=== PATIENT | male | born 1945 | race Caucasian/White ===

== ENCOUNTER 2017-12-12 23:33 | Observation (INO) | payer OTHER ==
[~2017-12-12] VITALS: Ht 175.3 cm; Wt 77.0 kg
[2017-12-13] VITALS (10 sets, daily range): BP systolic 113–137; BP diastolic 61–78; PULSE 65–80; TEMP 36.5–37.1; O2SAT 92–98; Ht 175.3 cm; Wt 77.0 kg
[2017-12-13] MEDS ORDERED: MoRPHine SULFATE 10 MG/ML CARP/VIAL IV STA ×2 (00:01→02:27)
[2017-12-13] MEDS ORDERED: ONDANSETRON INJ 2 MG/ML 2 ML VIAL IV STA (00:01)
[2017-12-13] MEDS ORDERED: SODIUM CHLORIDE 0.9% 1000ML 1,000 ML IV STA (00:01)
--- NOTE | 2017-12-13 00:06 | EMERGENCY ROOM VISIT NOTE ---
History Report prepared by Jhon: Joy Mcghee Under the Supervision of: Dr. Js Julian M.D. First contact with patient: 23:48 Chief Complaint: ABDOMINAL PAIN Stated Complaint: SUDDEN ONSET SEVERE STOMACH PAIN > 31/2HRS,VOMITIN History of Present Illness The patient is a 72 year old male who presents to the Emergency Room with complaints of persistent abdominal pain that started a few hours ago. The patient rates his pain a 7/10 in severity. He notes the pain is in the center of his stomach. He describes the pain as "sharp". He reports the pain started after he ate dinner. He states he thought he ate too much so he made himself vomit but it did not reduce his pain. He notes he ate soup and crackers but had to vomit soon after. He reports he took Advil to help his pain. He notes his last bowel movement was this morning. He denies any history of heart problems, aortic aneurysms, hernias, yellowing of eyes, leg swelling, rashes, or easy bruising. The patient denies any chest pain or urine symptoms. The patient has not had any recent injuries. He has a history of Type II Diabetes and was diagnosed a couple of weeks ago. He notes his blood sugar has been slightly high the past 2 days. Source of History: patient Onset: a few hours ago Position: abdomen Symptom Intensity: 7/10 Quality: sharp Timing: other (persistent) Associated Symptoms: No chest pain, No urinary symptoms Review of Systems See HPI for pertinent positives & negatives. A total of 10 systems reviewed and were otherwise negative. Past Medical & Surgical Medical Problems: (1) Symptomatic cholelithiasis No past medical or surgical history. Family History Patient reports no known family medical history. Social History Smoking Status: Never Smoker Marital Status: Housing Status: lives with significant other Allergies Coded Allergies: Metoprolol (Verified Allergy, Severe, Seizures, 12/13/17) Physical Exam Vital Signs Date Time Temp Pulse Resp B/P (MAP) Pulse Ox O2 Delivery O2 Flow Rate FiO2 12/13/17 03:49 75 16 129/74 95 Room Air 12/13/17 02:35 64 18 136/82 95 Room Air 12/13/17 01:17 89 18 148/80 97 Room Air 12/12/17 23:45 36.4 62 20 174/82 98 Room Air Physical Exam GENERAL: Patient is very uncomfortable appearing and in moderate distress. HEENT: No acute trauma, normocephalic atraumatic, mucous membranes moist, no nasal congestion, no scleral icterus. NECK: No stridor, no adenopathy, no meningismus, trachea is midline. LUNGS: No dyspnea. Clear to auscultation and equal bilaterally. No wheeze, no rhonchi. HEART: Regular rate and rhythm. No murmurs, rubs, gallops appreciated. ABDOMEN: Vague epigastric tenderness to palpation. Hyperactive bowel sounds. BACK: No midline tenderness, no CVA tenderness EXTREMITIES: Normal motion all extremities, no cyanosis, no edema. NEUROLOGIC: Alert and oriented, no acute motor or sensory deficits, no focal weakness, cranial nerves grossly intact. SKIN: No rash, no jaundice, no diaphoresis. Medical Decision & Procedures ER Provider Diagnostic Interpretation: Radiology results and stated below per my review and radiologist interpretation: CT ABDOMEN & PELVIS With Contrast: Normal appendix. No bowel wall thickening or bowel obstruction, Small hiatal hernia. Small water density cyst in the mid left kidney is most likely benign. Linear high density in both renal pelvises probably represents early excretion of contrast. No hydronephrosis or nephrolithiasis. Small bilateral fat-containing inguinal hernias. Laboratory Results 12/13/17 00:21 Red Blood Count 4.45, Mean Corpuscular Volume 87.4, Mean Corpuscular Hemoglobin 30.3, Mean Corpuscular Hemoglobin Concent 34.7, Mean Platelet Volume 9.3, Neutrophils (%) (Auto) 88.1, Lymphocytes (%) (Auto) 8.7, Monocytes (%) (Auto) 2.2, Eosinophils (%) (Auto) 0.6, Basophils (%) (Auto) 0.2, Neutrophils # (Auto) 10.15, Lymphocytes # (Auto) 1.00, Monocytes # (Auto) 0.25, Eosinophils # (Auto) 0.07, Basophils # (Auto) 0.02 12/13/17 00:21 Test 12/13/17 00:21 12/13/17 00:24 White Blood Count 11.51 K/uL (4.8-10.8) Red Blood Count 4.45 M/uL (4.7-6.1) Hemoglobin 13.5 g/dL (14.0-18.0) Hematocrit 38.9 % (42-52) Mean Corpuscular Volume 87.4 fL (80-100) Mean Corpuscular Hemoglobin 30.3 pg (25-34) Mean Corpuscular Hemoglobin Concent 34.7 g/dl (32-36) Platelet Count 222 K/uL (130-400) Mean Platelet Volume 9.3 fL (7.4-10.4) Neutrophils (%) (Auto) 88.1 % Lymphocytes (%) (Auto) 8.7 % Monocytes (%) (Auto) 2.2 % Eosinophils (%) (Auto) 0.6 % Basophils (%) (Auto) 0.2 % Neutrophils # (Auto) 10.15 K/uL (1.4-6.5) Lymphocytes # (Auto) 1.00 K/uL (1.2-3.4) Monocytes # (Auto) 0.25 K/uL (0.11-0.59) Eosinophils # (Auto) 0.07 K/uL (0-0.5) Basophils # (Auto) 0.02 K/uL (0-0.2) RDW Standard Deviation 42.4 fL (36.4-46.3) RDW Coefficient of Variation 13.2 % (11.5-14.5) Immature Granulocyte % (Auto) 0.2 % Immature Granulocyte # (Auto) 0.02 K/uL (0.00-0.02) Anion Gap 8.0 mmol/L (3-11) Est Creatinine Clear Calc Drug Dose 52.1 ml/min Estimated GFR () 62.9 Estimated GFR (Non- 54.3 BUN/Creatinine Ratio 16.6 (10-20) Calcium Level 9.6 mg/dl (8.5-10.1) Total Bilirubin 0.4 mg/dl (0.2-1) Direct Bilirubin 0.1 mg/dl (0-0.2) Aspartate Amino Transf (AST/SGOT) 14 U/L (15-37) Alanine Aminotransferase (ALT/SGPT) 32 U/L (12-78) Alkaline Phosphatase 52 U/L (45-117) Troponin I < 0.015 ng/ml (0-0.045) Total Protein 8.0 gm/dl (6.4-8.2) Albumin 4.0 gm/dl (3.4-5.0) Lipase 147 U/L (73-393) Urine Color YELLOW Urine Appearance CLEAR (CLEAR) Urine pH 5.0 (4.5-7.5) Urine Specific [place] 1.030 (1.000-1.030) Urine Protein 1+ (NEG) Urine Glucose (UA) NEG (NEG) Urine Ketones TRACE (NEG) Urine Occult Blood NEG (NEG) Urine Nitrite NEG (NEG) Urine Bilirubin NEG (NEG) Urine Urobilinogen NEG (NEG) Urine Leukocyte Esterase NEG (NEG) Urine WBC (Auto) 1-5 /hpf (0-5) Urine RBC (Auto) 0-4 /hpf (0-4) Urine Hyaline Casts (Auto) 1-5 /lpf (0-5) Urine Epithelial Cells (Auto) 5-10 /lpf (0-5) Urine Bacteria (Auto) NEG (NEG) Urine Crystals CALCIUM OXALATE (NONE Urine Mucus PRESENT (NONE PRSENT) Laboratory results as reviewed by me. Medications Administered Medications (Trade) Dose Ordered Sig/Bakari Route Start Time Stop Time Status Last Admin Dose Admin Sodium Chloride 1,000 ml @ 999 mls/hr Q1H1M STAT IV 12/13/17 00:01 12/13/17 01:01 DC 12/13/17 00:30 999 MLS/HR Morphine Sulfate (MoRPHine SULFATE INJ) 6 mg NOW STAT IV 12/13/17 00:01 12/13/17 00:03 DC 12/13/17 00:31 6 MG Ondansetron HCl (Zofran Inj) 4 mg NOW STAT IV 12/13/17 00:01 12/13/17 00:03 DC 12/13/17 00:31 4 MG Miscellaneous Information (Patient'S Allergy Info Needs Entered) 1 ea ONE STAT N/A 12/13/17 00:17 12/13/17 00:18 DC 12/13/17 00:17 1 EA Morphine Sulfate (MoRPHine SULFATE INJ) 6 mg NOW STAT IV 12/13/17 02:27 12/13/17 02:28 DC 12/13/17 02:35 6 MG Cefoxitin Sodium (Mefoxin 2000mg/ 60 ml D5W) 2,000 mg NOW STAT IV 12/13/17 03:13 12/13/17 03:14 DC 12/13/17 03:46 2,000 MG ECG Per My Interpretation Indication: abdominal pain Rate (beats per minute): 62 Rhythm: normal sinus Findings: no acute ischemic change, no ectopy, other (normal QTC, normal [place] interval) ED Course 234: The patient was evaluated in room C3. A complete history and physical exam was performed.\\\\ 0120: I reevaluated the patient and he is feeling much better. He still has discomfort but no severe pain. Awaiting CT scan. 021: I reevaluated the patient and he states the pain is coming back. I discussed limitations of ER evaluation but given continued pain we will proceed with US of gallbladder. 0315: General surgery was contacted by me. 032: I spoke with JAZMYNE Tucker from general surgery. He will evaluate the patient for further treatment. Medical Decision Differential: Cholecystitis, Gallbladder disfunction, Hepatic Disfunction, Gastritis/PUD, Pancreatitis, ACS, Aortic Pathology, amongst other pathologies entertained. 72 yr old male arrives with complaint of epigastric pain rapid onset since eating dinner. Associated nausea. TTP over epigastric region on arrival. With no history of abdominal issues and this sudden onset and severity felt CT imaging appropriate. Labs unremarkable. CT unremarkable though on repeat evaluation he is having increased pain and TTP over the RUQ. Thus felt US reasonable which was consistent with early cholecystitis and stone in gb neck. Given 2 g Mefoxin and surgery consulted who admitted him for further management. Patient stable, not septic and without significant discomfort at time of admission. Medication Reconcilliation Current Medication List: was personally reviewed by me Blood Pressure Screening Patient's blood pressure: Elevated blood pressure Blood pressure disposition: Elevated BP felt to be situational Consults Time Called: [phone] Consulting Physician: JAZMYNE Tucker general surgery Returned Call: [phone] I spoke with JAZMYNE Tucker from general surgery. He will evaluate the patient for further treatment. Impression Primary Impression: Symptomatic cholelithiasis Additional Impression: Acute calculous cholecystitis Scribe Attestation The scribe's documentation has been prepared under my direction and personally reviewed by me in its entirety. I confirm that the note above accurately reflects all work, treatment, procedures, and medical decision making performed by me. Departure Information Referrals Taylor Dumont DO (PCP) Patient Instructions [facility] Problem Qualifiers
[2017-12-13] MEDS ORDERED: OPTIRAY 320 IV PRN (00:15)
[2017-12-13] MEDS ORDERED: PATIENT'S ALLERGY INFO NEEDS ENTERED STA (00:17)
[2017-12-13 00:38] LABS: BASO % 0.2 %; BASO ABS # 0.02 K/uL (0-0.2); EOS % 0.6 %; EOS ABS # 0.07 K/uL (0-0.5); HEMATOCRIT 38.9 % (42-52); HEMOGLOBIN 13.5 g/dL (14.0-18.0); IG# 0.02 K/uL (0.00-0.02); LYMPH % 8.7 %; MEAN CELL VOLUME 87.4 fL (80-100); MEAN CORPUSCULAR HEMOGLOBIN 30.3 pg (25-34); MEAN CORPUSCULAR HGB CONC 34.7 g/dl (32-36); MEAN PLATELET VOLUME 9.3 fL (7.4-10.4); MONO % 2.2 %; MONO ABS # 0.25 K/uL (0.11-0.59); NEUT % 88.1 %; NEUT ABS # 10.15 K/uL (1.4-6.5); PLATELET COUNT 222 K/uL (130-400); RED CELL DISTRIBUTION WIDTH CV 13.2 % (11.5-14.5); RED CELL DISTRIBUTION WIDTH SD 42.4 fL (36.4-46.3); WHITE BLOOD COUNT 11.51 K/uL (4.8-10.8)
[2017-12-13 01:00] LABS: ALT/SGPT 32 U/L (12-78); AST/SGOT 14 U/L (15-37); BLOOD UREA NITROGEN 22 mg/dl (7-18); CALCIUM 9.6 mg/dl (8.5-10.1); CARBON DIOXIDE 26 mmol/L (21-32); CREATININE 1.32 mg/dl (0.60-1.40); GLUCOSE 212 mg/dl (70-99); LIPASE 147 U/L (73-393); POTASSIUM 4.4 mmol/L (3.5-5.1); SODIUM 138 mmol/L (136-145)
[2017-12-13 01:05] LABS: ALKALINE PHOSPHATASE 52 U/L (45-117)
[2017-12-13] MEDS ORDERED: CEFOXITIN 2000MG/60 ML D5W IV STA (03:13)
--- NOTE | 2017-12-13 04:55 | Surgery Consultation ---
Consultation Date of Consultation: Dec 13, 2017. Attending Physician: Reason for Consultation: cholelithiasis History of Present Illness Patient is a 72M who presents to the ED due to epigastric abdominal pain which started at approximately 1900. Patient reports the pain and dull and notes it began soon after he had pizza and strawberry shortcake for dinner around 1800. He thought he ate too much and was feeling nauseated, so he made himself vomit which did not improve his symptoms. Denies hematemesis. Denies any other episodes of vomiting. Denies fever/chills/recent illness. He has been moving his bowels and urinating without issue. Last BM this AM. Denies FHx of gallbladder disease. Denies regular use of any blood thinning or anticoagulant medications. He did try taking some Ibuprofen tonight without relief. PSHx significant for wisdom teeth. PMHx significant for DM. WBC 11.51, LFTs WNL. RUQ U/S shows cholelithiasis with a non-mobile stone in the GB neck, gallbladder wall top normal in thickness, mild pericholecystic fluid, CBD measures 0.6cm. Patient did receive 2g mefoxin in the ED at 0313. Family History Patient reports no known family medical history. Social History Smoking Status: Never Smoker Marital Status: Housing Status: lives with significant other Allergies Coded Allergies: Metoprolol (Verified Allergy, Severe, Seizures, 12/13/17) Current Inpatient Medications Current Inpatient Medications Medications (Trade) Dose Ordered Sig/Bakari Route Start Time Stop Time Status Last Admin Dose Admin Ioversol (Optiray 320) 125 ml UD PRN IV 12/13/17 00:15 12/17/17 00:14 Review of Systems Constitutional: No fever, No chills Respiratory: No shortness of breath Cardiovascular: No chest pain Abdomen: + pain (RUQ), + nausea, + vomiting (1 episode), No diarrhea, No constipation Genitourinary - Male: No dysuria Physical Exam Date Time Temp Pulse Resp B/P (MAP) Pulse Ox O2 Delivery O2 Flow Rate FiO2 12/13/17 03:49 75 16 129/74 95 Room Air 12/13/17 02:35 64 18 136/82 95 Room Air 12/13/17 01:17 89 18 148/80 97 Room Air 12/12/17 23:45 36.4 62 20 174/82 98 Room Air General Appearance: WD/WN, no apparent distress Head: normocephalic, atraumatic ENT: hearing grossly normal Neck: trachea midline Respiratory/Chest: lungs clear, no respiratory distress, no accessory muscle use Cardiovascular: regular rate, rhythm, no gallop, no murmur Abdomen/GI: soft, no organomegaly, no pulsatile mass, + tenderness (RUQ TTP), + distended (mild) Neurologic/Psych: alert, normal mood/affect, oriented x 3 Skin: normal color, warm/dry Laboratory Results Last 24 Hours Test 12/13/17 00:21 12/13/17 00:24 White Blood Count 11.51 K/uL Red Blood Count 4.45 M/uL Hemoglobin 13.5 g/dL Hematocrit 38.9 % Mean Corpuscular Volume 87.4 fL Mean Corpuscular Hemoglobin 30.3 pg Mean Corpuscular Hemoglobin Concent 34.7 g/dl Platelet Count 222 K/uL Mean Platelet Volume 9.3 fL Neutrophils (%) (Auto) 88.1 % Lymphocytes (%) (Auto) 8.7 % Monocytes (%) (Auto) 2.2 % Eosinophils (%) (Auto) 0.6 % Basophils (%) (Auto) 0.2 % Neutrophils # (Auto) 10.15 K/uL Lymphocytes # (Auto) 1.00 K/uL Monocytes # (Auto) 0.25 K/uL Eosinophils # (Auto) 0.07 K/uL Basophils # (Auto) 0.02 K/uL RDW Standard Deviation 42.4 fL RDW Coefficient of Variation 13.2 % Immature Granulocyte % (Auto) 0.2 % Immature Granulocyte # (Auto) 0.02 K/uL Sodium Level 138 mmol/L Potassium Level 4.4 mmol/L Chloride Level 104 mmol/L Carbon Dioxide Level 26 mmol/L Anion Gap 8.0 mmol/L Blood Urea Nitrogen 22 mg/dl Creatinine 1.32 mg/dl Est Creatinine Clear Calc Drug Dose 52.1 ml/min Estimated GFR () 62.9 Estimated GFR (Non- 54.3 BUN/Creatinine Ratio 16.6 Random Glucose 212 mg/dl Calcium Level 9.6 mg/dl Total Bilirubin 0.4 mg/dl Direct Bilirubin 0.1 mg/dl Aspartate Amino Transf (AST/SGOT) 14 U/L Alanine Aminotransferase (ALT/SGPT) 32 U/L Alkaline Phosphatase 52 U/L Troponin I < 0.015 ng/ml Total Protein 8.0 gm/dl Albumin 4.0 gm/dl Lipase 147 U/L Urine Color YELLOW Urine Appearance CLEAR Urine pH 5.0 Urine Specific [place] 1.030 Urine Protein 1+ Urine Glucose (UA) NEG Urine Ketones TRACE Urine Occult Blood NEG Urine Nitrite NEG Urine Bilirubin NEG Urine Urobilinogen NEG Urine Leukocyte Esterase NEG Urine WBC (Auto) 1-5 /hpf Urine RBC (Auto) 0-4 /hpf Urine Hyaline Casts (Auto) 1-5 /lpf Urine Epithelial Cells (Auto) 5-10 /lpf Urine Bacteria (Auto) NEG Urine Crystals CALCIUM OXALATE Urine Mucus PRESENT Assessment & Plan symptomatic cholelithiasis, stone in gallbladder neck Plan for laparoscopic cholecystectomy with possible intraoperative cholangiogram, possible open in the OR today with Dr. Morris. Risks, benefits, alternatives to the procedure were discussed - all questions answered. Admit med/surg (obs), NPO, IV Mefoxin 2g Q6H, IV Fluids, pain medications PRN , zofran PRN, SCDs OR notified. Will discuss findings with Dr. Morris in the AM.
[2017-12-13] MEDS ORDERED: HYDROmorphone INJ 1 MG/ML SYR IV PRN ×2 (05:00→08:30)
[2017-12-13] MEDS ORDERED: HYDROmorphone INJ 0.5 MG/0.5 ML SYR IV PRN (05:00)
[2017-12-13] MEDS ORDERED: ONDANSETRON INJ 6 MG in DEXTROSE 5% 50ML 50 ML IV PRN (05:00)
[2017-12-13] MEDS ORDERED: METF-384 PO ×2 (05:31)
[2017-12-13] MEDS ORDERED: ATOR-24 PO ×2 (05:31)
[2017-12-13] MEDS ORDERED: LISI-729 PO ×2 (05:32)
[2017-12-13] MEDS ORDERED: LEVO88TA3 PO ×2 (05:33)
[2017-12-13] MEDS ORDERED: GLIP-199 PO ×2 (05:34)
[2017-12-13] MEDS ORDERED: ASPI81TA28 PO ×2 (05:35)
[2017-12-13] MEDS: ACETAMINOPHEN IV 1,000 MG in EMPTY BAG 0 ML IV SCH ×3 (06:10→21:54)
[2017-12-13] MEDS: SODIUM CHLORIDE 0.9% 1000ML 1,000 ML IV SCH ×2 (06:11→17:08)
[2017-12-13] MEDS ORDERED: IV FLUIDS COMPLETED PRN (06:15)
--- NOTE | 2017-12-13 07:20 | DIAGNOSTIC IMAGING REPORT ---
ULTRASOUND RIGHT UPPER QUADRANT ABDOMEN CLINICAL HISTORY: Right upper quadrant abdominal pain. COMPARISON STUDY: Abdominal CT dated 12/13/2017. TECHNIQUE: Real-time, grayscale, and color flow sonography of the right upper quadrant of the abdomen was performed. Images are reviewed in the transverse and longitudinal planes. FINDINGS: Liver: The liver is normal in size and echotexture. There is no intrahepatic biliary ductal dilatation. The main portal vein is patent. Gallbladder: There is a calcified shadowing gallstone in the region of the gallbladder neck which measures up to 1.7 cm. The gallbladder is mildly distended. The gallbladder wall is top normal in thickness measuring up to 3 mm and appears slightly edematous. Trace pericholecystic fluid is identified. A sonographic Stinson's sign is reportedly absent. The common bile duct measures up to 0.6 cm in diameter. Pancreas: Not well visualized due to overlying bowel gas. Right kidney: Survey images of the right kidney demonstrate normal size and echotexture. There is no hydronephrosis. Ascites: None. IMPRESSION: 1. Cholelithiasis with findings concerning for acute cholecystitis. Surgical consultation is advised. Consider nuclear hepatobiliary scan for confirmation if clinically warranted. 2. There is no intra or extrahepatic biliary ductal dilatation. 3. The pancreas was not well visualized due to overlying bowel gas. Electronically signed by: Rene Thompson M.D. 12/13/2017 7:18 AM Dictated Date/Time: 12/13/2017 7:16 AM
--- NOTE | 2017-12-13 08:25 | DIAGNOSTIC IMAGING REPORT ---
CT SCAN OF THE ABDOMEN AND PELVIS WITH IV CONTRAST CLINICAL HISTORY: Epigastric abdominal pain. COMPARISON STUDY: No priors. TECHNIQUE: Following the IV administration of 120 cc of Optiray 320, CT scan of the abdomen and pelvis is performed from the lung bases to the proximal femora. Images are reviewed in the axial, sagittal, and coronal planes. IV contrast was administered without complication. A dose lowering technique was utilized adhering to the principles of ALARA. CT DOSE: 373.27 mGy.cm FINDINGS: Lung bases: The heart is normal in size and without pericardial effusion. The lung bases are clear noting dependent atelectasis. There is a tiny hiatal hernia. Liver: The contrast-enhanced liver is normal in size, contour, and attenuation. There is no intrahepatic biliary ductal dilatation. The hepatic veins and portal veins are patent. Gallbladder: Unremarkable. Spleen: Normal in size and attenuation. Pancreas: Unremarkable. Adrenal glands: Unremarkable. Kidneys: The contrast enhanced kidneys demonstrate cortical atrophy and are without hydronephrosis. The kidneys enhance symmetrically. Scattered subcentimeter cortical hypodensities likely represent cysts but are too small for definitive characterization. Abdominal vasculature: The abdominal aorta is normal in course and caliber noting moderate atherosclerotic calcification. Bowel: Fecal retention is noted in the right colon. No bowel obstruction is seen. The appendix is well-visualized and normal. Peritoneum: There is no intraperitoneal free air or abdominal ascites. Lymphadenopathy: None. Pelvic viscera: The prostate gland appears mildly enlarged. The bladder is normal as visualized. A small fat-containing right inguinal hernia is noted. Skeletal structures: The skeletal structures are osteopenic. There is mild to moderate lumbosacral spondylosis. No lytic or blastic lesions are seen. IMPRESSION: No acute infectious or inflammatory findings are identified in the abdomen or pelvis. Electronically signed by: Rene Thompson M.D. 12/13/2017 8:24 AM Dictated Date/Time: 12/13/2017 8:17 AM
[2017-12-13] MEDS ORDERED: EpHEDrine SULFATE INJ 50 MG/ML AMP IV PRN (08:30)
[2017-12-13] MEDS ORDERED: FENTANYL CITRATE INJ 50 MCG/1 ML 2 ML VIAL IV PRN (08:30)
[2017-12-13] MEDS ORDERED: LABETALOL HCL IV 5 MG/ML 20ML IV PRN (08:30)
[2017-12-13] MEDS ORDERED: MEPERIDINE HCL 25 MG/ML CARP IV PRN (08:30)
[2017-12-13] MEDS ORDERED: ONDANSETRON INJ 2 MG/ML 2 ML VIAL IV PRN ×2 (08:30→16:00)
[2017-12-13] MEDS ORDERED: ATROPINE SULFATE 0.1 MG/ML 5ML SYR IV PRN (08:30)
[2017-12-13] MEDS ORDERED: CEFOXITIN IV 2,000 MG in DEXTROSE 5% 50ML 50 ML IV SCH (10:00)
[2017-12-13] MEDS ORDERED: MoRPHine SULFATE PF 1 MG/ML 10 ML AMP/VIAL ONE (14:24)
[2017-12-13] MEDS ORDERED: FENTANYL CITRATE INJ 50 MCG/1 ML 2 ML VIAL ONE ×2 (14:24→15:14)
[2017-12-13] MEDS ORDERED: MIDAZOLAM HCL 1 MG/ML 2ML VIAL ONE (14:24)
[2017-12-13] MEDS ORDERED: ONDANSETRON INJ 2 MG/ML 2 ML VIAL ONE (15:14)
[2017-12-13] MEDS ORDERED: PROPOFOL IV EMULSION 10 MG/ML 20 ML VIAL IV ONE (15:14)
[2017-12-13] MEDS ORDERED: GLYCOPYRROLATE INJ 0.2 MG/ML VIAL ONE (15:14)
[2017-12-13] MEDS ORDERED: ROCURONIUM BROMIDE 10 MG/ML 5 ML VIAL IV ONE (15:14)
[2017-12-13] MEDS ORDERED: KETOROLAC TROMETHAMINE 30 MG/ML VIAL ONE (15:14)
[2017-12-13] MEDS ORDERED: NEOSTIGMINE METHYLSULFATE 5 MG/5 ML SYR ONE (15:14)
[2017-12-13] MEDS ORDERED: CEFOXITIN SOD 1 GM VIAL ONE (15:15)
[2017-12-13] MEDS ORDERED: BUPIVACAINE 0.5 % 5 MG/1 ML MPF 30ML VIAL INJ ONE (15:37)
--- NOTE | 2017-12-13 15:41 | [facility] Post Operative Brief Note ---
Immediate Operative Summary Operative Date Dec 13, 2017. Pre-Operative Diagnosis Symptomatic cholelithiasis, stone in gallbladder neck Post-Operative Diagnosis Symptomatic cholelithiasis, acute cholecystitis Procedure(s) Performed Laparoscopic Cholecystectomy Surgeon Dr. Morris Research Anthropologist Surgeon(s) Yolis Rico PA-C Estimated Blood Loss 5 ml Findings Consistent with Post-Op Diagnosis Window of safety obtained Specimens Permanent Specimens: A:Gallbladder and contents Drains None Anesthesia Type General Complication(s) none Disposition Accompanied Pt To Recover: no Disposition: Recovery Room / PACU
--- NOTE | 2017-12-13 15:45 | [facility] Operative Report ---
Operative Report Operative Date Dec 13, 2017. Pre-Operative Diagnosis Symptomatic cholelithiasis, stone in gallbladder neck Post-Operative Diagnosis Acute calculus cholecystitis Procedure(s) Performed Laparoscopic cholecystectomy Surgeon Dr. Morris Mounter Sousaphones Surgeon(s) Yolis Rico PA-C Estimated Blood Loss 5 ml Findings Moderate cholecystitis, window of safety obtained, cystic duct and artery doubly clipped and divided, good hemostasis Specimens Permanent Specimens: A:Gallbladder and contents Drains None Anesthesia General Complication(s) None Disposition Recovery Room / PACU Indications 72-year-old male admitted overnight with acute calculus cholecystitis, plan for laparoscopic cholecystectomy with possible cholangiogram. The risks of the procedure were discussed, all questions were answered, and the patient agreed to proceed with surgery as planned. Description of Procedure The patient was properly identified, consented, and taken to the operating room where he was placed in the supine position. General endotracheal anesthesia was induced. SCDs and a safety belt were placed. Preoperative antibiotics were administered. The patient's abdomen was prepped and draped in the standard sterile fashion. A surgical timeout was performed and all parties were in agreement that this was the correct patient and procedure to be performed and we continued as planned. An incision was made superior and to the left of the umbilicus overlying the rectus muscle and the Veress needle was inserted. Saline drop test confirmed entry into the peritoneum. The abdomen was insufflated with carbon dioxide which the patient tolerated without incident. The abdomen was then entered using the Optiview technique and a 5 mm trocar. The laparoscope was inserted and no damage from initial trocar or Veress needle placement was noted, no gross abnormalities were noted within the 4 quadrants of the abdomen. An 11 mm port was placed in the subxiphoid position and two 5 mm ports were then placed in the right subcostal position. The patient was placed in reverse Trendelenburg position and rotated towards the left. The gallbladder is moderately inflamed and tense and a needle was used to aspirate the gallbladder to allow for easier retraction. The dome of the gallbladder was retracted towards the left upper quadrant and the infundibulum was retracted toward the right lower quadrant revealing Calot's triangle. Peritoneal attachments were taken down with electrocautery and blunt dissection. The cystic duct and artery were circumferentially dissected. A window of safety was obtained showing the cystic duct entering the gallbladder with no aberrant structures noted. The cystic duct and artery were doubly clipped and divided. A small posterior branch of the cystic artery was identified and clipped and divided. The gallbladder was then lifted off the gallbladder fossa with electrocautery. The gallbladder was placed in an Endo Catch bag and removed through the subxiphoid port site. The right upper quadrant was irrigated and hemostasis was found to be good. 5 mm trochars were removed under direct visualization and the abdomen was allowed to collapse. The subxiphoid port site fascia was closed with 0 Vicryl suture. The wound was irrigated, and the skin of all ports was closed with 4-0 Monocryl subcuticular sutures. Dermabond was placed over the wounds. The patient was extubated in the operating room and taken to the PACU where he recovered without apparent incident. All sponge, instrument and needle counts were correct at the conclusion of the procedure. The patient tolerated the procedure well. The physician's psychiatric assistant was present and scrubbed for the entirety of the case. She was critical in positioning the patient, prepping and draping, entry into the abdomen, retraction and exposure, driving the laparoscope, removal of the gallbladder, closure of the incisions, and placement of the dressings. I attest to the content of the Intraoperative Record and any orders documented therein. Any exceptions are noted below.
[2017-12-13] MEDS ORDERED: MoRPHine SULFATE 2 MG/ML CARP IV PRN ×2 (16:00)
[2017-12-13] MEDS ORDERED: OXYCODONE/ACETAMINOPHEN 5-325 TAB PO PRN ×2 (16:00)
[2017-12-13] MEDS ORDERED: MoRPHine SULFATE 4 MG/ML 1 ML CARP\\VIAL IV PRN (16:00)
--- NOTE | 2017-12-13 16:05 | Discharge Instructions ---
Discharge Instructions Date of Service Dec 13, 2017. Admission Reason for Admission: Symptomatic Cholelithiasis Discharge Discharge Diagnosis / Problem: Cholelithiasis Discharge Goals Goal(s): Decrease discomfort, Improve function Activity Recommendations Activity Limitations: as noted below Lifting Limitations: no more than 10 pounds Exercise/Sports Limitations: until after follow-up appointment May Resume Sexual Activity: after follow-up appointment Shower/Bathe: tomorrow Driving or Machine Use: resume 3 days after discharge . Instructions / Follow-Up Instructions / Follow-Up Please follow-up with Dr. Morris in the General Surgery Clinic at [address] [place] [address] [email or web address] in 1-2 weeks. Please call the office at to make this appointment. Please call the office with any questions or concerns. Current Hospital Diet Patient's current hospital diet: Diabetes Type 2 Diet, Clear Liquid Diet Discharge Diet Recommended Diet: Regular Diet Procedures Procedures Performed: Laparoscopic Cholecystectomy Pending Studies Studies pending at discharge: yes List of pending studies: Pathology report. Medical Emergencies . Who to Call and When: Medical Emergencies: If at any time you feel your situation is an emergency, please call 911 immediately. . Non-Emergent Contact Non-Emergency issues call your: Primary Care Provider, Surgeon Call Non-Emergent contact if: temperature is above 101.5, your pain is not controlled, wound has increased drainage, wound has increased redness . "Provider Documentation" section prepared by Yolis Vazquez. .
--- NOTE | 2017-12-13 16:40 | Anesthesiology Progress Note ---
Anesthesia Post Op Note Date & Time Dec 13, 2017 at 16:39 Vital Signs Pain Intensity: 0 Vital Signs Past 12 Hours Date Time Temp Pulse Resp B/P (MAP) Pulse Ox O2 Delivery O2 Flow Rate FiO2 12/13/17 16:25 81 13 142/76 95 Nasal Cannula 3 12/13/17 16:15 92 13 136/82 96 Nasal Cannula 3 12/13/17 16:05 88 12 152/75 97 Nasal Cannula 3 12/13/17 15:58 36.6 90 14 162/75 95 Room Air 12/13/17 07:15 Room Air 12/13/17 07:05 36.8 65 16 113/69 (84) 95 Room Air 12/13/17 05:40 36.5 65 16 125/78 93 Room Air 12/13/17 05:27 66 16 122/72 95 Room Air Notes Mental Status: alert / awake / arousable, participated in evaluation Pt Amnestic to Procedure: Yes Nausea / Vomiting: adequately controlled Pain: adequately controlled Airway Patency, RR, SpO2: stable & adequate BP & HR: stable & adequate Hydration State: stable & adequate Anesthetic Complications: no major complications apparent
[2017-12-13] MEDS ORDERED: NURSING VERBAL MED ORDER ONE (16:45)
[2017-12-13] MEDS ORDERED: METFORMIN HCL 500 MG TAB PO SCH (21:00)
[2017-12-13] MEDS: CEFOXITIN IV 2,000 MG in DEXTROSE 5% 50ML 50 ML IV SCH (21:11)
[2017-12-14] MEDS: SODIUM CHLORIDE 0.9% 1000ML 1,000 ML IV SCH (03:08)
[2017-12-14] MEDS: CEFOXITIN IV 2,000 MG in DEXTROSE 5% 50ML 50 ML IV SCH ×3 (03:08→14:34)
[2017-12-14] MEDS: ACETAMINOPHEN IV 1,000 MG in EMPTY BAG 0 ML IV SCH ×2 (05:31→13:43)
[2017-12-14] MEDS ORDERED: LEVOTHYROXINE 88 MCG TAB PO SCH (06:00)
--- NOTE | 2017-12-14 06:42 | Surgery Progress Note ---
Surgery Progress Note Date of Service Dec 14, 2017. Subjective Post OP Day: 1 + feeling well, + ambulating, + pain controlled, + diet (Tolerating full liquids DM type II diet), No complaints, No bowel movement, No nausea, No vomiting Patient reports some trouble urinating last night. A bladder scan was performed finding 400cc at that time and a catheter was placed which has since been removed. Reports he feels like he is starting to have the urge to urinate but not much is coming out yet. Objective Vital Signs: Date Time Temp Pulse Resp B/P (MAP) Pulse Ox O2 Delivery O2 Flow Rate FiO2 12/13/17 23:30 Room Air 12/13/17 23:15 36.9 74 16 130/76 (94) 92 Room Air 12/13/17 19:56 36.9 77 15 125/71 (89) 98 Nasal Cannula 2.0 12/13/17 18:47 36.5 77 14 115/67 (83) 97 Nasal Cannula 2.0 12/13/17 17:50 36.5 80 16 129/77 (94) 94 Nasal Cannula 3.0 12/13/17 17:22 97 Nasal Cannula 3.0 12/13/17 17:18 36.8 73 14 122/61 (81) 97 Nasal Cannula 3.0 12/13/17 16:50 94 Nasal Cannula 3.0 12/13/17 16:50 37.1 73 14 137/77 (97) 94 Nasal Cannula 3.0 12/13/17 16:35 36.6 82 13 133/80 95 Nasal Cannula 3 12/13/17 16:25 81 13 142/76 95 Nasal Cannula 3 12/13/17 16:15 92 13 136/82 96 Nasal Cannula 3 12/13/17 16:05 88 12 152/75 97 Nasal Cannula 3 12/13/17 15:58 36.6 90 14 162/75 95 Room Air 12/13/17 07:15 Room Air 12/13/17 07:05 36.8 65 16 113/69 (84) 95 Room Air General Appearance: WD/WN, no apparent distress Head: normocephalic, atraumatic Respiratory/Chest: no respiratory distress, no accessory muscle use Abdomen: soft, no organomegaly, + distended (mild), + tenderness (mild, incisional) Incision(s): clean, dry, intact, no erythema, no drainage Laboratory Results: Results Past 24 Hours Test 12/13/17 16:06 12/13/17 20:41 12/14/17 06:17 Range/Units Bedside Glucose 151 217 70-99 mg/dl Assessment & Plan POD #1 s/p laparoscopic cholecystectomy Pain controlled, No N/V, Tolerating full liquids, Having some trouble with urination - bladder scanned and cath placed last night. Patient feels hungry for more- Will try Regular diet/DM type II diet for breakfast. D/C today if pain controlled, tolerating foods and he is urinating okay. Will discuss findings with Dr. Morris. Please contact with questions or concerns.
[2017-12-14 07:00] LABS: BASO % 0.1 %; BASO ABS # 0.01 K/uL (0-0.2); EOS % 4.5 %; EOS ABS # 0.42 K/uL (0-0.5); HEMATOCRIT 35.4 % (42-52); IG# 0.01 K/uL (0.00-0.02); LYMPH % 20.2 %; MEAN CELL VOLUME 89.2 fL (80-100); MEAN CORPUSCULAR HEMOGLOBIN 30.2 pg (25-34); MEAN CORPUSCULAR HGB CONC 33.9 g/dl (32-36); MEAN PLATELET VOLUME 9.3 fL (7.4-10.4); MONO % 10.3 %; MONO ABS # 0.97 K/uL (0.11-0.59); NEUT % 64.8 %; NEUT ABS # 6.08 K/uL (1.4-6.5); PLATELET COUNT 203 K/uL (130-400); RED CELL DISTRIBUTION WIDTH CV 13.7 % (11.5-14.5); RED CELL DISTRIBUTION WIDTH SD 44.9 fL (36.4-46.3); WHITE BLOOD COUNT 9.39 K/uL (4.8-10.8)
[2017-12-14 07:09] LABS: ALBUMIN 3.2 gm/dl (3.4-5.0); CREATININE 1.49 mg/dl (0.60-1.40)
[2017-12-14 07:11] LABS: TOTAL PROTEIN 6.5 gm/dl (6.4-8.2)
[2017-12-14 07:27] VITALS: BP 132/78; PULSE 73; TEMP 36.8; O2SAT 95
[2017-12-14 07:34] VITALS: O2SAT 95
[2017-12-14] MEDS ORDERED: OXYC-57 PO ×2 (07:41)
[2017-12-14] MEDS ORDERED: LISINOPRIL 5 MG TAB PO SCH (09:00)
[2017-12-14] MEDS ORDERED: ASPIRIN 81 MG ECTAB PO SCH (09:00)
[2017-12-14] MEDS ORDERED: ATORVASTATIN 40 MG TAB PO SCH (09:00)
[2017-12-14 11:48] VITALS: BP 130/68; PULSE 72; TEMP 37; O2SAT 92
[2017-12-14 15:31] VITALS: BP 147/91; PULSE 81; TEMP 36.8; O2SAT 93
[2017-12-14 15:46] VITALS: BP 147/91; PULSE 81; TEMP 36.8; O2SAT 93
--- NOTE | 2017-12-14 15:58 | DISCHARGE SUMMARY ---
PRIMARY DISCHARGE DIAGNOSES: 1. Cholelithiasis with acute cholecystitis. 2. Urinary retention. SECONDARY DISCHARGE DIAGNOSES: Recently diagnosed diabetes type 2. PROCEDURE PERFORMED: Laparoscopic cholecystectomy. HOSPITAL COURSE: The patient is a 72-year-old male who presented to Emergency Department overnight with a complaint of epigastric pain began after several hours after eating dinner. His white count was 11,000. Ultrasound showed cholelithiasis with a 1.7 cm stone in the gallbladder neck, gallbladder wall thickening and trace pericholecystic fluid. He was admitted to surgery service, taken to the operating room later that afternoon for laparoscopic cholecystectomy. The procedure was well tolerated. He was returned to the surgical floor, continued on IV Mefoxin overnight. He required straight catheterization x2 overnight and in the morning postoperative day #1. He was tolerating diet and oral analgesics. His IV fluids were discontinued. He was able to void 350 mL of urine on his own later in the afternoon. At that time, he was stable for discharge. DISCHARGE INSTRUCTIONS: Discharge home. Follow up with Dr. Morris in 2 weeks. He is to return to the Emergency Department or contact us our office if he has any further difficulties urinating. DISCHARGE MEDICATIONS: Percocet 1-2 tablets every 4 hours as needed. Resume home medications aspirin 81 mg daily, Lipitor 40 mg daily, glipizide 10 mg daily, levothyroxine 88 mcg daily, Zestril 5 mg daily, and Glucophage 1000 mg p.o. b.i.d.
== END 2017-12-14 15:59 | disposition home or self-care (01) ==
LOC: C.EDB 23:35 → C.MSN 12-13 04:59 → ENRESERV 12-13 05:12
PROVIDERS: ADMIT Surgery; ATTEND Surgery
DX: K80.00 Calculus of gallbladder with acute cholecystitis without obstruction (principal); E11.9 Type 2 diabetes mellitus without complications; Z79.82 Long term (current) use of aspirin

== ENCOUNTER 2017-12-15 09:46 | Emergency (ER) | payer OTHER ==
[~2017-12-15] VITALS: Ht 175.3 cm; Wt 81.3 kg
[~2017-12-15 09:46] MED LIST: ASPI81TA28 PO; ATOR-24 PO; GLIP-199 PO; LEVO88TA3 PO; LISI-729 PO; METF-384 PO; OXYC-57 PO
[2017-12-15 10:03] VITALS: TEMP 36.5; Ht 175.3 cm; Wt 81.3 kg
--- NOTE | 2017-12-15 11:21 | EMERGENCY ROOM VISIT NOTE ---
History Report prepared by Jhon: [place] Under the Supervision of: Dr. Al Malagon M.D. First contact with patient: 10:06 Chief Complaint: UNABLE TO VOID Stated Complaint: UNABLE TO URINATE Nursing Triage Summary: pt was discharged yesterday after gallbladder removal was urinating yesterday now just dribbling a little. feels like he needs cathed History of Present Illness The patient is a 72 year old male who presents to the Emergency Room with complaints of worsening inability to void. He reports he underwent a cholecystectomy this past Thursday, 2 days [employer], by Dr. Morris, and started to experience some difficulty urinating while he was in the hospital. Since then, it has worsened and a bedside ultrasound shows 600 mL of urine in the bladder. The patient states when he does try to urinate, he "just dribbles". His surgical incisions are clean, dry and non-erythematous or edematous. He states he feels well otherwise. Pt denies LOC, headache, fevers, chills, diaphoresis, visual changes, neck pain, chest pain, breathing difficulties, nausea, vomiting , abdominal pain, back pain, melena, hematochezia, urinary symptoms, numbness, weakness, lymphadenopathy, rash, or other complaints. His PCP is Dr. Dumont with [facility]. He has never seen Urology in the past. Source of History: patient Onset: 2 days [employer] Position: pelvis (urinary system) Timing: worsening Modifying Factors (Worsening): other (recent catheterization during surgery) Review of Systems See HPI for pertinent positives and negatives. A total of six systems were reviewed and were otherwise negative. Past Medical & Surgical Medical Problems: (1) Symptomatic cholelithiasis Family History Patient reports no known family medical history. Social History Smoking Status: Never Smoker Alcohol Use: none Drug Use: none Marital Status: Housing Status: lives with significant other Occupation Status: retired Current/Historical Medications Scheduled Aspirin (Aspirin Ec), 81 MG PO DAILY Atorvastatin (Lipitor), 40 MG PO DAILY Glipizide (Glipizide Er), 10 MG PO DAILY Levothyroxine Sodium (Levothyroxine Sodium), 88 MCG PO DAILY Lisinopril (Zestril), 5 MG PO DAILY Metformin Hcl (Glucophage), 1,000 MG PO BID Allergies Coded Allergies: Metoprolol (Verified Allergy, Severe, Seizures, 3/6/18) Physical Exam Vital Signs Date Time Temp Pulse Resp B/P (MAP) Pulse Ox O2 Delivery O2 Flow Rate FiO2 12/15/17 11:55 76 20 126/80 99 12/15/17 11:23 76 20 126/70 98 Room Air 12/15/17 10:03 36.5 80 18 178/106 98 Room Air Physical Exam GENERAL: Awake, alert, uncomfortable-appearing, in no distress HENT: Normocephalic, atraumatic. Oropharynx unremarkable. EYES: Normal conjunctiva. Sclera non-icteric. NECK: Supple. No nuchal rigidity. FROM. No masses. RESPIRATORY: Clear to auscultation. No wheezes. CARDIAC: Normal rate. Normal rhythm. No murmurs. No rubs. Extremities warm and well perfused. Pulses equal. No JVD. GI: Soft, non-distended. Suprapubic tenderness to palpation. No rebound or guarding. No masses. : Normal male genitalia. No bleeding or discharge noted. MUSCULOSKELETAL: Atraumatic. Chest examination reveals no tenderness. The back is symmetrical on inspection without obvious abnormality. There is no CVA tenderness to palpation. No joint edema. NEURO: Normal sensorium. No sensory or motor deficits noted. SKIN: No rash or jaundice noted. Medical Decision & Procedures Laboratory Results Test 12/15/17 10:25 Urine Color YELLOW Urine Appearance CLEAR (CLEAR) Urine pH 5.0 (4.5-7.5) Urine Specific [place] 1.011 (1.000-1.030) Urine Protein NEG (NEG) Urine Glucose (UA) NEG (NEG) Urine Ketones NEG (NEG) Urine Occult Blood TRACE (NEG) Urine Nitrite NEG (NEG) Urine Bilirubin NEG (NEG) Urine Urobilinogen NEG (NEG) Urine Leukocyte Esterase NEG (NEG) Urine WBC (Auto) 0 /hpf (0-5) Urine RBC (Auto) 0-4 /hpf (0-4) Urine Hyaline Casts (Auto) 1-5 /lpf (0-5) Urine Epithelial Cells (Auto) 0-5 /lpf (0-5) Urine Bacteria (Auto) NEG (NEG) Laboratory results reviewed by me ED Course 1009: The patient was evaluated in room B10. A complete history and physical exam was performed. 1130: I reevaluated the patient. He is feeling well and resting comfortably. I discussed his results and discharge instructions and he verbalized complete understanding and agreement. Medical Decision Triage Nursing notes reviewed. The patient's presentation and history were concerning for urinary retention. Etiologies such as UTI, prostatic hypertrophy, trauma secondary to recent catheterization, renal issues, as well as others were entertained. The patient presented emergency department. He was uncomfortable. He was having difficulty urinating. Bladder scan was performed and revealed over 600 mL of urine. A Balderas catheter was placed urinalysis was sent. His urinalysis was rather unremarkable. No signs of infection. This is likely related to some irritation from the catheter placed during surgery. Catheter care was discussed. Urology follow-up was set by the patient case coordinator. I gave my usual and customary discussion regarding this issue. By the evaluation outlined above other emergent etiologies such as those listed in the differential, as well as others, were deemed relatively unlikely. The patient was educated about the findings as listed above. All questions were answered and the patient was pleased with the treatment. Return instructions were outlined and the patient was discharged in stable condition. The patient was referred to urology for follow-up for a recheck of the current condition. Medication Reconcilliation Current Medication List: was personally reviewed by me Blood Pressure Screening Patient's blood pressure: Elevated blood pressure Blood pressure disposition: Elevated BP felt to be situational Impression Primary Impression: Urinary retention Scribe Attestation The scribe's documentation has been prepared under my direction and personally reviewed by me in its entirety. I confirm that the note above accurately reflects all work, treatment, procedures, and medical decision making performed by me. Departure Information Dispostion Home / Self-Care Referrals Taylor Dumont DO (PCP) Patient Instructions [facility] Additional Instructions Acetaminophen(Tylenol) may be used for fever or pain. Use 1000mg every six hours as needed. Avoid using more than 3000mg in a 24 hour period. Continue current medications. Care for the catheter as discussed. Do not pull on the catheter. Use the leg bag during the day and the large bag at night when you are sleeping. Drain the bag frequently. Do not let it fill completely. Return to the emergency department for fevers, abdominal pain, catheter problems , or as needed. Followup with the Dr. Cesar of urology as scheduled on the by case management.
[2017-12-15 11:55] VITALS: BP 126/80; PULSE 76; O2SAT 99
== END 2017-12-15 11:57 | disposition home or self-care (01) ==
LOC: C.EDB 09:48
DX: R33.9 Retention of urine, unspecified (principal); Z90.49 Acquired absence of other specified parts of digestive tract; Z79.82 Long term (current) use of aspirin; Z79.84 Long term (current) use of oral hypoglycemic drugs; Z88.8 Allergy status to other drugs, medicaments and biological substances